=== PATIENT | male | born 1975 | race Caucasian/White ===

== ENCOUNTER 2017-09-10 13:57 | Emergency (ER) | payer BC, OTHER ==
[2017-09-10] MEDS ORDERED: Bacitracin Oint 1 GM U/D Packet TOP ONE (14:28)
--- NOTE | 2017-09-10 15:13 | EDM.PDOC ---
ED HPI GENERAL MEDICAL PROBLEM - General Chief Complaint: General Stated Complaint: FISH HOOK Time Seen by Provider: 09/10/17 14:20 Source of Information: Reports: Patient History Limitations: Reports: No Limitations - History of Present Illness INITIAL COMMENTS - FREE TEXT/NARRATIVE: 42-year-old male with a fish hook embedded into his left hand. Onset: Today - Related Data Allergies Allergy/AdvReac Type Severity Reaction Status Date / Time No Known Allergies Allergy Verified 09/10/17 14:22 Home Meds: Home Meds Citalopram Hydrobromide [Celexa] 60 mg PO DAILY 09/10/17 [History] Lisinopril 30 mg PO DAILY 09/10/17 [History] Past Medical History Cardiovascular History: Reports: Hypertension Musculoskeletal History: Reports: Back Pain, Chronic, Neck Pain, Chronic Psychiatric History: Reports: Depression - Past Surgical History HEENT Surgical History: Reports: Adenoidectomy, Tonsillectomy Neurological Surgical History: Reports: Spinal Fusion Other Neurological Surgeries/Procedures: lower back Social & Family History - Tobacco Use Smoking Status *Q: Current Every Day Smoker Years of Tobacco use: 1 Packs/Tins Daily: 0.5 - Caffeine Use Caffeine Use: Reports: Coffee - Recreational Drug Use Recreational Drug Use: No ED ROS GENERAL - Review of Systems Review Of Systems: ROS reveals no pertinent complaints other than HPI. ED EXAM, GENERAL - Physical Exam Exam: See Below Exam Limited By: No Limitations General Appearance: Alert, No Apparent Distress Respiratory/Chest: No Respiratory Distress Extremities: Other (Fish hook is embedded into the palmar aspect of the left hand at the base of the thumb) Course - Vital Signs Last Recorded V/S: Last Vital Signs Temp 98.5 F 09/10/17 14:13 Pulse 76 09/10/17 14:13 Resp 18 09/10/17 14:13 BP 132/65 09/10/17 14:13 Pulse Ox 96 09/10/17 14:13 - Orders/Labs/Meds Meds: Medications Discontinued Medications Generic Name Dose Route Start Last Admin Trade Name Freq PRN Reason Stop Dose Admin Bacitracin 1 dose 09/10/17 14:28 09/10/17 14:34 Bacitracin Oint 1 Gm TOP 09/10/17 14:29 1 dose ONETIME ONE Administration Lidocaine HCl 5 ml 09/10/17 14:28 09/10/17 14:34 Xylocaine-Mpf 1% INJECT 09/10/17 14:29 5 ml ONETIME ONE Administration - Re-Assessments/Exams Free Text/Narrative Re-Assessment/Exam: 09/10/17 15:12 The area was sterilized with alcohol, infiltrated with 1% lidocaine and the fishhook was removed without difficulty. Topical bacitracin and a Band-Aid was applied. Patient will keep wound clean while healing. Departure - Departure Time of Disposition: 15:22 Disposition: Home, Self-Care 01 Condition: Good Clinical Impression: Puncture wound of hand, left Qualifiers: Encounter type: initial encounter Foreign body presence: with foreign body Qualified Code(s): S61.442A - Puncture wound with foreign body of left hand, initial encounter - Discharge Information Instructions: Puncture Wound Referrals: PCP,None [Primary Care Provider] - Forms: ED Department Discharge Care Plan Goals: Keep wound covered and clean while healing. Recheck if concerns of infection or not healing satisfactorily.
== END 2017-09-10 15:22 | disposition home or self-care (01) ==
LOC: JP.ED 13:57
DX: S61.442A Puncture wound with foreign body of left hand, initial encounter (principal); Z79.899 Other long term (current) drug therapy; W45.8XXA Other foreign body or object entering through skin, initial encounter
CPT/HCPCS: 99283